=== PATIENT | female | born 1975 | race Caucasian/White ===

== ENCOUNTER 2017-04-01 16:36 | Emergency (ER) | payer BC, OTHER ==
[2017-04-01 17:09] VITALS: BP 143/91
[2017-04-01] MEDS ORDERED: Diphtheria,Pertussis(Acell),Tetanus Vaccine 0.5 ML Syringe IM ONE (17:09)
[2017-04-01] MEDS ORDERED: Silver Sulfadiazine 1% Crm 50 GM Tube TOP ONE (17:09)
[2017-04-01] MEDS ORDERED: Ketorolac 60 MG/2 ML SDV IM ONE (17:09)
--- NOTE | 2017-04-01 17:18 | EDM.PDOC ---
ED HPI GENERAL MEDICAL PROBLEM - General Chief Complaint: Burn Stated Complaint: BURN LT ARM Time Seen by Provider: 04/01/17 16:49 - History of Present Illness INITIAL COMMENTS - FREE TEXT/NARRATIVE: HISTORY AND PHYSICAL: History of present illness: The patient is a 42-year-old female who is unsure of her last tetanus shot presents from work after a hot steel that she was working with splattered onto her left forearm. Patient is right-hand dominant and states she was in her usual state of good health before this happened. He still was hot and liquefied and splattered and landed on the volar surface of her distal forearm on the left. There were no other exposures that she is aware of. Patient complains of pain at the area but has no neurosensory changes in the hands. Review of systems: As per history of present illness and below otherwise all systems reviewed and negative. Past medical history: As per history of present illness and as reviewed below otherwise noncontributory. Surgical history: As per history of present illness and as reviewed below otherwise noncontributory. Social history: No reported history of drug or alcohol abuse. Family history: As per history of present illness and as reviewed below otherwise noncontributory. Physical exam: General: Well-developed well-nourished female who is nontoxic and speaking easily in the ED HEENT: Atraumatic, normocephalic, negative for conjunctival pallor or scleral icterus, mucous membranes moist, throat clear, neck supple, nontender, trachea midline. Lungs: Clear to auscultation, breath sounds equal bilaterally, chest nontender. Heart: S1S2, regular rate and rhythm no overt murmurs Skin: At the volar surface of the distal left forearm there is multiple scattered areas of pink erythema which is ill-defined and some very small blisters seen consistent with the burn the patient describes. This is not circumferential it is very localized not extending to even retirement up the surface. There is no distal hand injuries or lesions seen and no proximal injuries or rashes/lesions seen. Patient has full range of motion of the hand in flexion at the wrist. Extremities: Atraumatic, negative for cords or calf pain. Neurovascular unremarkable. Neuro: Awake, alert, oriented. Cranial nerves II through XII unremarkable. Cerebellum unremarkable. Motor and sensory unremarkable throughout. Exam nonfocal. Diagnostics: [] Therapeutics: Tdap, cool saline gauzes, Silvadene and wound care, Toradol Impression: Superficial partial thickness burn to left forearm Definitive disposition and diagnosis as appropriate pending reevaluation and review of above. left forearm Pain Score (Numeric/FACES): 8 - Related Data Allergies Allergy/AdvReac Type Severity Reaction Status Date / Time ondansetron Allergy Cannot Verified 04/01/17 16:50 [From Zofran (as Remember hydrochloride)] adhesives Allergy Hives Uncoded 04/01/17 16:49 Home Meds: Home Meds Pantoprazole Sodium [Protonix] 40 mg PO DAILY 04/16/15 [History] buPROPion [Wellbutrin XL] 300 mg PO DAILY 04/16/15 [History] Fluconazole [Diflucan] 0 mg PO DAILY 04/01/17 [History] Iron 0 tab PO DAILY 04/01/17 [History] Past Medical History - Past Health History Medical/Surgical History: Denies Medical/Surgical History HEENT History: Reports: Impaired Vision Other HEENT History: wears glasses Other Gastrointestinal History: Bariatric surgery HIGH RISK OB History: Reports: Musculoskeletal History: Reports: Other (See Below) Other Musculoskeletal History: left foot pain Psychiatric History: Reports: PTSD - Past Surgical History Other GI Surgeries/Procedures: Bariatric surgery 2013. . Other Female Surgeries/Procedures: clips on fallopian tubes and hematoma removed from vaginal wwall 2014 Social & Family History - Family History Family Medical History: Noncontributory - Tobacco Use Smoking Status *Q: Current Every Day Smoker Years of Tobacco use: 30 Packs/Tins Daily: 1 - Caffeine Use Caffeine Use: Reports: None - Alcohol Use Days Per Week of Alcohol Use: 0 - Recreational Drug Use Recreational Drug Use: No ED ROS GENERAL - Review of Systems Review Of Systems: ROS reveals no pertinent complaints other than HPI. ED EXAM, GENERAL - Physical Exam Exam: See Below (See dictation) Course - Vital Signs Last Recorded V/S: Last Vital Signs Temp 36.7 C 04/01/17 16:55 Pulse 78 04/01/17 16:55 Resp 18 04/01/17 16:55 BP 143/91 H 04/01/17 16:55 Pulse Ox - Orders/Labs/Meds Orders: Active Orders 24 hr Category Date Time Status Communication Order [RC] STAT Care 04/01/17 17:09 Ordered Vaccines to be Administered [RC] PER UNIT ROUTINE Care 04/01/17 17:10 Ordered Diphth,Pertuss(Acell),Tet Vac [Adacel] Med 04/01/17 17:09 Once 0.5 ml IM .ONCE ONE Ketorolac [Toradol] Med 04/01/17 17:09 Once 60 mg IM ONETIME ONE Silver Sulfadiazine [Silvadene 1% Cream 50 GM] Med 04/01/17 17:09 Once 5 gm TOP ONETIME ONE Departure - Departure Time of Disposition: 17:14 Disposition: Home, Self-Care 01 Condition: good Clinical Impression: Burn of left forearm Qualifiers: Encounter type: initial encounter Burn degree: unspecified degree Qualified Code(s): T22.012A - Burn of unspecified degree of left forearm, initial encounter - Discharge Information Forms: ED Department Discharge Additional Instructions: The following information is given to patients seen in the emergency department who are being discharged to home. This information is to outline your options for follow-up care. We provide all patients seen in our emergency department with a follow-up referral. The need for follow-up, as well as the timing and circumstances, are variable depending upon the specifics of your emergency department visit. If you don't have a primary care physician on staff, we will provide you with a referral. We always advise you to contact your personal physician following an emergency department visit to inform them of the circumstance of the visit and for follow-up with them and/or the need for any referrals to a consulting specialist. The emergency department will also refer you to a specialist when appropriate. This referral assures that you have the opportunity for followup care with a specialist. All of these measure are taken in an effort to provide you with optimal care, which includes your followup. Under all circumstances we always encourage you to contact your private physician who remains a resource for coordinating your care. When calling for followup care, please make the office aware that this follow-up is from your recent emergency room visit. If for any reason you are refused follow-up, please contact the [facility] emergency department at and ask to speak to the emergency department charge nurse. [facility] Primary care- Internal Medicine and Family [address] [address] [facility] Specialty clinic-Plastic Surgery and Hand Surgery Professional Building [address] [place] [id number] Please cleanse the area with mild soap and water as we discussed that dry and apply Silvadene 3 times a day. Please elevate the area and remove your rings on your hand to prevent any future complications from swelling. Please use pain meds as needed but only take at home and otherwise use [id number] Tylenol and ibuprofen. Please call and followup with primary care or with our plastics fitter and return to ER as needed as discussed - My Orders Last 24 Hours: My Active Orders 04/01/17 17:09 Communication Order [RC] STAT Diphth,Pertuss(Acell),Tet Vac [Adacel] 0.5 ml IM .ONCE ONE Ketorolac [Toradol] 60 mg IM ONETIME ONE Silver Sulfadiazine [Silvadene 1% Cream 50 GM] 5 gm TOP ONETIME ONE 04/01/17 17:10 Vaccines to be Administered [RC] PER UNIT ROUTINE - Assessment/Plan Last 24 Hours: My Active Orders 04/01/17 17:09 Communication Order [RC] STAT Diphth,Pertuss(Acell),Tet Vac [Adacel] 0.5 ml IM .ONCE ONE Ketorolac [Toradol] 60 mg IM ONETIME ONE Silver Sulfadiazine [Silvadene 1% Cream 50 GM] 5 gm TOP ONETIME ONE 04/01/17 17:10 Vaccines to be Administered [RC] PER UNIT ROUTINE
== END 2017-04-01 17:45 | disposition home or self-care (01) ==
LOC: MW.ED 16:36
DX: T22.112A Burn of first degree of left forearm, initial encounter (principal); F17.210 Nicotine dependence, cigarettes, uncomplicated; Z98.84 Bariatric surgery status; Z79.899 Other long term (current) drug therapy; Z88.8 Allergy status to other drugs, medicaments and biological substances; X18.XXXA Contact with other hot metals, initial encounter; Y92.69 Other specified industrial and construction area as the place of occurrence of the external cause; Y99.0 Civilian activity done for income or pay; Z23 Encounter for immunization
CPT/HCPCS: 16020; 90471; 90715; 96372; 99283; A9270; J1885

== ENCOUNTER 2019-11-27 14:41 | Emergency (ER) | payer BC ==
--- NOTE | 2019-11-27 16:18 | EDM.PDOC ---
ED HPI GENERAL MEDICAL PROBLEM - General Chief Complaint: Upper Extremity Injury/Pain Stated Complaint: SWOLLEN LEFT HAND Time Seen by Provider: 11/27/19 16:17 Source of Information: Reports: Patient History Limitations: Reports: No Limitations - History of Present Illness INITIAL COMMENTS - FREE TEXT/NARRATIVE: HISTORY AND PHYSICAL: History of present illness: Patient is a 44-year-old female presents to the ED with complaint of left hand swelling. 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 She states she had an x-ray and MRI then. She has been wearing a splint on her hand at night. She states this morning she woke up and her her hand was really swollen. She denies any new or recent injury. She states her hand is aching but is better now that the swelling has gone down. Review of systems: As per history of present illness and below otherwise all systems reviewed and negative. Past medical history: As per history of present illness and as reviewed below otherwise noncontributory. Surgical history: As per history of present illness and as reviewed below otherwise noncontributory. Social history: No reported history of drug or alcohol abuse. Family history: As per history of present illness and as reviewed below otherwise noncontributory. Physical exam: General: Patient sitting comfortably in no acute distress and nontoxic appearing HEENT: Atraumatic, normocephalic, pupils reactive, negative for conjunctival pallor or scleral icterus, mucous membranes moist, throat clear, neck supple, nontender, trachea midline. No meningeal signs. Lungs: Clear to auscultation, breath sounds equal bilaterally, chest nontender. Heart: S1S2, regular, negative for clicks, rubs, or overt murmur. Abdomen: Soft, nondistended, nontender. Negative for masses or hepatosplenomegaly. Negative for costovertebral tenderness. No rigidity, rebound , guarding. Pelvis: Stable nontender. Genitourinary: Deferred. Rectal: Deferred. Extremities: Left hand is mildy swollen without erythema or warmth. Full ROM without pain. CMS intact. Atraumatic, negative for cords or calf pain. Neurovascular unremarkable. Neuro: Awake, alert, oriented. Cranial nerves II through XII unremarkable. Cerebellum unremarkable. Motor and sensory unremarkable throughout. Exam nonfocal. Notes: Diagnostics: declined x-ray Therapeutics: none Prescriptions: none Impression: Left hand swelling Plan: Ice, elevate, and alternate tylenol and motrin as needed Follow up with primary care provider Return to ED as needed as discussed Definitive disposition and diagnosis as appropriate pending reevaluation and review of above. - Related Data Allergies Allergy/AdvReac Type Severity Reaction Status Date / Time ondansetron Allergy Cannot Verified 04/01/17 16:50 [From Zofran (as Remember hydrochloride)] promethazine [From Phenergan] Allergy Cannot Verified 11/27/19 15:45 Remember adhesives Allergy Hives Uncoded 04/01/17 16:49 Home Meds: Home Meds Pantoprazole Sodium [Protonix] 40 mg PO DAILY 04/16/15 [History] buPROPion [Wellbutrin XL] 300 mg PO DAILY 04/16/15 [History] Aspirin [Halfprin] 1 tab PO DAILY 11/27/19 [History] Garlic 1 tab PO DAILY 11/27/19 [History] Past Medical History - Past Health History Medical/Surgical History: Denies Medical/Surgical History HEENT History: Reports: Impaired Vision Other HEENT History: wears glasses Other Gastrointestinal History: Bariatric surgery 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 . Other Female Surgeries/Procedures: clips on fallopian tubes and hematoma removed from vaginal wwall 2014 Social & Family History - Family History Family Medical History: Noncontributory - Tobacco Use Smoking Status *Q: Never Smoker - Caffeine Use Caffeine Use: Reports: None Review of Systems - Review of Systems Review Of Systems: Comprehensive ROS is negative, except as noted in HPI. ED EXAM, GENERAL - Physical Exam Exam: See Below (see dictation) Course - Vital Signs Last Recorded V/S: Last Vital Signs Temp Pulse 76 11/27/19 15:54 Resp 16 11/27/19 15:54 BP 162/110 H 11/27/19 15:54 Pulse Ox 99 11/27/19 15:54 Departure - Departure Time of Disposition: 16:17 Disposition: Home, Self-Care 01 Condition: Good Clinical Impression: Swelling of left hand - Discharge Information Referrals: Harrison Benjamin MD [Primary Care Provider] - Forms: ED Department Discharge Additional Instructions: The following information is given to patients seen in the emergency department who are being discharged to home. This information is to outline your options for follow-up care. We provide all patients seen in our emergency department with a follow-up referral. The need for follow-up, as well as the timing and circumstances, are variable depending upon the specifics of your emergency department visit. If you don't have a primary care physician on staff, we will provide you with a referral. We always advise you to contact your personal physician following an emergency department visit to inform them of the circumstance of the visit and for follow-up with them and/or the need for any referrals to a consulting specialist. The emergency department will also refer you to a specialist when appropriate. This referral assures that you have the opportunity for follow-up care with a specialist. All of these measure are taken in an effort to provide you with optimal care, which includes your follow-up. Under all circumstances we always encourage you to contact your private physician who remains a resource for coordinating your care. When calling for follow-up care, please make the office aware that this follow-up is from your recent emergency room visit. If for any reason you are refused follow-up, please contact the [facility] Emergency Department at and asked to speak to the emergency department charge nurse. [facility] Primary Care [address] [place], [place] [id number] [place] [address] Ice, elevate, and alternate tylenol and motrin as needed Follow up with primary care provider Return to ED as needed as discussed Sepsis Event Note - Evaluation Sepsis Screening Result: No Definite Risk - Focused Exam Vital Signs: Vital Signs Pulse Resp BP Pulse Ox 11/27/19 15:54 76 16 162/110 H 99 11/27/19 15:46 71 16 170/92 H 98 Date Exam was Performed: 11/27/19 Time Exam was Performed: 16:18
[2019-11-27 16:29] VITALS: BP 162/101; PULSE 66
== END 2019-11-27 16:20 | disposition home or self-care (01) ==
LOC: MW.ED 14:41
DX: M79.89 Other specified soft tissue disorders (principal); F43.10 Post-traumatic stress disorder, unspecified; Z88.8 Allergy status to other drugs, medicaments and biological substances; Z91.048 Other nonmedicinal substance allergy status; Z79.899 Other long term (current) drug therapy
CPT/HCPCS: 99282; 99283

== ENCOUNTER 2021-03-02 13:34 | Emergency (ER) | payer BC ==
[2021-03-02] MEDS ORDERED: Meclizine 25 MG Tab PO ONE (14:00)
--- NOTE | 2021-03-02 14:05 | EDM.PDOC ---
ED HPI GENERAL MEDICAL PROBLEM - General Chief Complaint: Cardiovascular Problem Stated Complaint: HYPER TENSION Time Seen by Provider: 03/02/21 13:43 - History of Present Illness INITIAL COMMENTS - FREE TEXT/NARRATIVE: 46-year-old female history of rheumatoid arthritis who is presenting with vertigo. Patient woke up yesterday morning with profound sensation of room spinning worsens when laying flat worsens with motion specifically turning her head. It did calm throughout the day but worsened again in the evening after laying down. She eventually was able to lay down again and go to bed woke up this morning with even worse room spinning. She does have a sensation of near syncope when the symptoms are very bad. She had nonbloody nonbilious emesis with it yesterday she has significant nausea but no vomiting today. No chest pain or shortness of breath. Patient took her blood pressure 3 times in rapid succession and noted hypotension and so called her sister who is an CHALK MOLDING MACHINE OPERATOR who recommended she come to the ER. No recent neck pain or manipulation no current neck pain no severe headache Headache Pain Score (Numeric/FACES): 1 - Related Data Allergies Allergy/AdvReac Type Severity Reaction Status Date / Time ondansetron Allergy Cannot Verified 03/02/21 13:46 [From Zofran (as Remember hydrochloride)] promethazine [From Phenergan] Allergy Cannot Verified 03/02/21 13:46 Remember adhesives Allergy Hives Uncoded 03/02/21 13:46 Home Meds: Home Meds buPROPion [Wellbutrin XL] 300 mg PO DAILY 04/16/15 [History] Esomeprazole [NexIUM] 40 mg PO DAILY 03/02/21 [History] Folic Acid 1 mg PO DAILY 03/02/21 [History] Meclizine [Antivert] 25 mg PO Q6H PRN #15 tab 03/02/21 [Rx] Methotrexate 1 dose PO ASDIRECTED 03/02/21 [History] Ramelteon [Rozerem] 8 mg PO DAILY 03/02/21 [History] predniSONE [Prednisone] 2.5 mg PO DAILY 03/02/21 [History] Past Medical History - Past Health History Medical/Surgical History: Denies Medical/Surgical History HEENT History: Reports: Impaired Vision Other HEENT History: wears glasses Other Gastrointestinal History: Bariatric surgery 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 . Other Female Surgeries/Procedures: clips on fallopian tubes and hematoma removed from vaginal wwall 2014 Social & Family History - Family History Family Medical History: No Pertinent Family History - Caffeine Use Caffeine Use: Reports: None ED ROS GENERAL - Review of Systems Review Of Systems: See Below Free Text/Narrative/Comment: General: No fever. Skin: No rash. Eyes: No vision problems. ENT: No sore throat. Neck: No neck stiffness. Respiratory: No shortness of breath. Cardiac: Per HPI Gastrointestinal: No nausea, vomiting or abdominal pain. Urinary: No dysuria. Musculoskeletal: No myalgias/arthralgias. Neurologic: Per HPI ED EXAM, GENERAL - Physical Exam Exam: See Below Free Text/Narrative:: General Appearance: No acute distress, appears comfortable Skin: No rash HEENT: Normocephalic/atraumatic, sclera anicteric, mucous membranes moist Neck: Normal range of motion Chest and Lungs: Bilateral breath sounds, clear to auscultation Cardiovascular: Regular rate and rhythm, no murmur Abdomen: Soft, non-tender Back: Normal Musculoskeletal: No edema or tenderness Neurologic: Cranial nerves III through XI intact bilaterally, visual bray intact to confrontation bilaterally, normal eryhyp-xr-xtls bilaterally, normal [id number] bilaterally strength intact in the upper and lower extremities. Patient has nystagmus with leftward gaze she has an abnormal head impulse test with a normal test of skew Psychiatric: Appropriate, cooperative #1 Interpretation EKG Date: 03/02/21 Time: 14:15 EKG Interpretation Comments: Sinus rhythm rate of 68 normal axis and intervals no acute ischemia Course - Vital Signs Last Recorded V/S: Last Vital Signs Temp 96.8 F L 03/02/21 13:48 Pulse 73 03/02/21 13:48 Resp 18 03/02/21 13:48 BP 148/83 H 03/02/21 13:48 Pulse Ox 100 03/02/21 13:48 - Orders/Labs/Meds Orders: Active Orders 24 hr Category Date Time Status EKG Documentation Completion [RC] STAT Care 03/02/21 14:00 Active Labs: Laboratory Tests 03/02/21 03/02/21 Range/Units 14:25 14:25 WBC 10.66 (4.0-11.0) K/uL RBC 4.72 (4.30-5.90) M/uL Hgb 15.4 (12.0-16.0) g/dL Hct 47.3 H (36.0-46.0) % MCV 100.2 H (80.0-98.0) fL MCH 32.6 H (27.0-32.0) pg MCHC 32.6 (31.0-37.0) g/dL RDW Std Deviation 64.3 H (28.0-62.0) fl RDW Coeff of Susan 18 H (11.0-15.0) % Plt Count 334 (150-400) K/uL MPV 10.90 (7.40-12.00) fL Neut % (Auto) 64.9 (48.0-80.0) % Lymph % (Auto) 18.1 (16.0-40.0) % Nye % (Auto) 14.3 (0.0-15.0) % Eos % (Auto) 2.6 (0.0-7.0) % Baso % (Auto) 0.1 (0.0-1.5) % Neut # (Auto) 6.9 H (1.4-5.7) K/uL Lymph # (Auto) 1.9 (0.6-2.4) K/uL Nye # (Auto) 1.5 H (0.0-0.8) K/uL Eos # (Auto) 0.3 (0.0-0.7) K/uL Baso # (Auto) 0.0 (0.0-0.1) K/uL Nucleated RBC % 0.0 /100WBC Nucleated RBCs # 0 K/uL Sodium 142 (136-145) mmol/L Potassium 4.1 (3.5-5.1) mmol/L Chloride 105 (98-107) mmol/L Carbon Dioxide 26.9 (21.0-32.0) mmol/L BUN 9 (7.0-18.0) mg/dL Creatinine 0.8 (0.6-1.0) mg/dL Est Cr Clr Drug Dosing 74.26 mL/min Estimated GFR (MDRD) > 60.0 ml/min Glucose 94 (74-106) mg/dL Calcium 9.2 (8.5-10.1) mg/dL Troponin I < 0.050 (0.000-0.056) ng/mL Meds: Medications Discontinued Medications Generic Name Dose Route Start Last Admin Trade Name Freq PRN Reason Stop Dose Admin Meclizine HCl 25 mg 03/02/21 14:00 03/02/21 14:24 Meclizine 25 Mg Tab PO 03/02/21 14:01 25 mg ONETIME ONE Administration Departure - Departure Time of Disposition: 15:19 Disposition: Home, Self-Care 01 Condition: Good Clinical Impression: Peripheral vertigo, Hypertension Prescriptions: Meclizine [Antivert] 25 mg PO Q6H PRN #15 tab PRN Reason: Dizziness Instructions: Vertigo, [id number], Hypertension, Adult, Spad-ly-Pwkg Referrals: Harrison Benjamin MD [Ordering Only Provider] - 3 Days Forms: ED Department Discharge Additional Instructions: Please call your primary care doctor on Thursday to arrange a follow-up appoi ntment. You can take the meclizine as you need you to help with the dizziness. If you have any worsening of your symptoms or any new symptoms that concern you please call your doctor or return to the ER. The following information is given to patients seen in the emergency department who are being discharged to home. This information is to outline your options for follow-up care. We provide all patients seen in our emergency department with a follow-up referral. The need for follow-up, as well as the timing and circumstances, are variable depending upon the specifics of your emergency department visit. If you don't have a primary care physician on staff, we will provide you with a referral. We always advise you to contact your personal physician following an emergency department visit to inform them of the circumstance of the visit and for follow-up with them and/or the need for any referrals to a consulting specialist. The emergency department will also refer you to a specialist when appropriate. This referral assures that you have the opportunity for follow-up care with a specialist. All of these measure are taken in an effort to provide you with optimal care, which includes your follow-up. Under all circumstances we always encourage you to contact your private physician who remains a resource for coordinating your care. When calling for follow-up care, please make the office aware that this follow-up is from your recent emergency room visit. If for any reason you are refused follow-up, please contact the [facility] Emergency Department at and asked to speak to the emergency department charge nurse. Sepsis Event Note (ED) - Evaluation Sepsis Screening Result: No Definite Risk - Focused Exam Vital Signs: Vital Signs Temp Pulse Resp BP Pulse Ox 03/02/21 13:48 96.8 F L 73 18 148/83 H 100 - My Orders Last 24 Hours: My Active Orders 03/02/21 14:00 EKG Documentation Completion [RC] STAT - Assessment/Plan Last 24 Hours: My Active Orders 03/02/21 14:00 EKG Documentation Completion [RC] STAT Assessment:: 46-year-old female presenting with signs and symptoms consistent with peripheral vertigo given the HINTS exam results central vertigo can be excluded. TMs are clear bilaterally no sign of otitis media. Will provide meclizine for symptoms. Patient does complain of an episode near syncope and so EKG CBC BMP and troponin ordered no chest pain however concern for ACS but cardiac arrhythmia is a consideration. No shortness of breath nothing suggest PE aortic dissection pneumothorax. If evaluation reassuring and symptoms improve will be stable for discharge. Given normal neurologic exam and hints exam results no indication for CT scan at this time. Patient has no neck pain no recent neck manipulation no findings that would suggest vertebral artery dissection. 1520: Labs are normal. EKG is without ischemia. Patient symptoms improved with meclizine. She does remain mildly hypertensive at 169/89. We discussed the importance of following up with her primary care doctor. Patient does have a prior history of hypertension and was on medications in the past. Patient to follow-up with her primary care doctor return precaution discussed and understood.
[2021-03-02 14:55] LABS: BLOOD UREA NITROGEN,BUN 9 mg/dL (7.0-18.0); CARBON DIOXIDE,CO2 26.9 mmol/L (21.0-32.0); CHLORIDE,CL 105 mmol/L (98-107); GLUCOSE RANDOM 94 mg/dL (74-106); POTASSIUM,K 4.1 mmol/L (3.5-5.1); SODIUM,NA 142 mmol/L (136-145)
[2021-03-02 15:27] VITALS: BP 161/83; PULSE 67
== END 2021-03-02 15:28 | disposition home or self-care (01) ==
LOC: MW.ED 13:34
DX: H81.399 Other peripheral vertigo, unspecified ear (principal); I10 Essential (primary) hypertension; Z79.899 Other long term (current) drug therapy; Z91.048 Other nonmedicinal substance allergy status; Z88.8 Allergy status to other drugs, medicaments and biological substances; Z88.1 Allergy status to other antibiotic agents
CPT/HCPCS: 36415; 80048; 84484; 85025; 93005; 99284; A9270

== ENCOUNTER 2021-06-21 22:31 | Emergency (ER) | payer BC ==
[2021-06-21] MEDS ORDERED: Ketorolac 15 MG/ML SDV IM ONE (22:54)
[2021-06-21 22:55] VITALS: BP 154/84; PULSE 78
--- NOTE | 2021-06-21 23:50 | CR ---
INDICATION: Fall. TECHNIQUE: Right hand radiographs, 3 views. Right wrist radiographs, 3 views. COMPARISON: None. FINDINGS: Right wrist: No dislocation or displaced fracture. Patchy sclerosis and lucency throughout the lunate, as well as multiple lucencies traversing the lunate on the lateral projection. Mild triscaphe joint space narrowing and osteophytosis. Soft tissue swelling about the wrist. Right hand: No dislocation or acute fracture. Joint spaces are maintained. No radiopaque foreign body or soft tissue gas. IMPRESSION: 1. 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 Lucencies traversing the lunate may be due to chronic fragmentation and/or acute fracture. 2. No additional acute osseous abnormality. Dictated by Mark Barrios MD @ 06/21/2021 11:48:12 PM Dictated by: Mark Barrios MD @ 06/21/2021 23:48:19 (Electronically Signed)
--- NOTE | 2021-06-21 23:52 | CR ---
INDICATION: Fall. TECHNIQUE: Left foot radiographs, 3 nonweightbearing views. COMPARISON: None. FINDINGS: No dislocation or acute fracture. Bipartite hallux fibular sesamoid. Joint spaces are maintained. Moderate bidirectional calcaneal enthesophyte. No radiopaque foreign body or soft tissue gas. IMPRESSION: Left foot without acute osseous abnormality. Dictated by aMrk Barrios MD @ 06/21/2021 11:49:59 PM Dictated by: Mark Barrios MD @ 06/21/2021 23:50:05 (Electronically Signed)
--- NOTE | 2021-06-22 00:26 | EDM.PDOC ---
ED HPI GENERAL MEDICAL PROBLEM - General Chief Complaint: Lower Extremity Injury/Pain Stated Complaint: FELL DOWN THE STAIRS Time Seen by Provider: 06/21/21 22:42 - History of Present Illness INITIAL COMMENTS - FREE TEXT/NARRATIVE: CHIEF COMPLAINT(S): Fall HISTORY OF PRESENT ILLNESS: This is a 38-year-old woman with a past medical history of reported rheumatoid arthritis who comes to the emergency department with a chief complaint of fall. The patient states that today she fell down and she does have recurrent falls. She states that she has a history of rheumatoid arthritis and has decreased range of motion in her right hand. She states that she is currently experiencing some left foot pain and right hand pain. She denies any head injury or loss of consciousness. She states the pain in her left foot is on the top of her left foot. She denies any numbness, tingling, weakness. She states that she has not yet tried any pain medication. She rates her pain as 3 out of 10 and achy. She states that the pain is worse when you touch it. This is similar for both areas of pain. She states that her hand has no decreased range of motion as compared to baseline but she is experiencing pain on the thumb side of her hand. She denies any numbness, tingling, weakness. She denies any other symptoms or injuries. REVIEW OF SYSTEMS: Constitutional: Denies fever, chills. Eyes: Denies eye pain Ears, Nose, Mouth, & Throat: Denies earache Cardiovascular: Denies chest pain Respiratory: Denies shortness of breath Gastrointestinal: Denies Nausea, vomiting, diarrhea, hematochezia. Genitourinary: Denies hematuria Skin:Denies a rash MSK: Positive for left foot and right hand pain Neurological: Denies blurred vision Psychiatric: Denies depression PAST MEDICAL HISTORY: As per history of present illness and as reviewed below otherwise noncontributory. SURGICAL HISTORY: As per history of present illness and as reviewed below otherwise noncontributory. SOCIAL HISTORY: As per history of present illness and as reviewed below otherwise noncontributory. FAMILY HISTORY: As per history of present illness and as reviewed below otherwise noncontributory. EXAMINATION OF ORGAN SYSTEMS/BODY AREAS: Constitutional: Blood pressure 154/84, heart rate 78, respiratory rate 22 with an oxygen saturation of 100% on room air. Temperature 36.6 General: Middle-aged woman who does not appear to be in acute distress Psychiatric: Appropriate mood and affect. Eyes: No scleral icterus or conjunctival erythema ENMT: Moist mucous membranes. No pharyngeal erythema Cardiovascular: Regular, rate, and rhythm. No gallops, murmurs, or rubs. Bilateral upper extremity and lower extremity pulses symmetric and intact. No peripheral edema. No JVD. Respiratory: Lungs clear to auscultation bilaterally. No wheezes, rales, or rhonchi. Gastrointestinal: Soft, non-tender, non-distended. Normoactive bowel sounds Genitourinary: No suprapubic tenderness Musculoskeletal: The patient can fully flex and extend at the left ankle. There is tenderness to palpation along the dorsal aspect of the left foot. Full range of motion of the toes. No obvious deformity of the left foot or swelling. On the lower right hand there is decreased range of motion however the patient reports that this is baseline. She has tenderness palpation along the right thumb. She has anatomical snuffbox tenderness. There is mild swelling along h er right hand. Skin: No lesions or abrasions. Neurological: Alert, GCS 15 distal sensation is intact MEDICAL DECISION MAKING AND COURSE IN THE ED WITH INTERPRETATION/REVIEW OF DIAGNOSTIC STUDIES: This is a 46-year-old man with a past medical history of reported rheumatoid arthritis and decreased range of motion of her right hand who comes to the emergency department with recurrent falls with a fall with left foot tenderness to palpation and anatomical snuffbox tenderness. At this time we will provide the patient with Toradol for pain relief. The patient notes no blood thinners therefore no other imaging is indicated. The patient has stable vital signs. Will obtain left foot x-ray, right hand x-ray and right wrist x- ray. We will reevaluate after this. The radiological images were viewed by myself along with reading the report from the radiologist. Right wrist x-ray reveals right lunate patchy sclerosis and lucency which is suspicious for osteonecrosis. This may be due to chronic fragmentation or acute fracture otherwise no acute abnormality. Right hand x-ray reveals similar lunate lucency otherwise no acute fracture. Left foot x-ray does not reveal any fracture or dislocation. 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 I did discuss the results with the patient. I discussed with her at this time that given the anatomical snuffbox tenderness and her inability to bear weight will place them in a thumb spica splint on the right hand and a posterior mold splint and she needs to follow-up with orthopedics. I did discuss her prior MRI results and the x-ray today. She is to discuss this with her orthopedic surgeon and her business solution analyst. I did encourage her to use Tylenol, Motrin, ice and elevation to help with the pain. She was given strict return precautions. She was amenable discharge and had no further questions DISPOSITION: The patient was discharged home in stable condition. The patient will follow up with orthopedics in 5 to 7 days CONDITION: Fair PROCEDURES: None FINAL IMPRESSION(S)/DIAGNOSES: 1. Acute left foot pain, suspect ligamentous injury 2. Acute right hand pain with anatomical snuffbox tenderness, possible scaphoid fracture DME: Right thumb spica splint Indication: Snuffbox tenderness, possible scaphoid fracture Benefit: Immobilization Duration: Until follow-up with orthopedics DME: Crutches Indication: Nonweightbearing left lower extremity secondary to possible ligamentous injury Benefit: Nonweightbearing Duration: Until follow-up with orthopedics Ld Wells M.D. right wrist Pain Score (Numeric/FACES): 3 - Related Data Allergies Allergy/AdvReac Type Severity Reaction Status Date / Time ondansetron Allergy Cannot Verified 06/21/21 22:37 [From Zofran (as Remember hydrochloride)] promethazine [From Phenergan] Allergy Cannot Verified 06/21/21 22:37 Remember adhesives Allergy Hives Uncoded 03/02/21 13:46 Home Meds: Home Meds buPROPion [Wellbutrin XL] 300 mg PO DAILY 04/16/15 [History] Esomeprazole [NexIUM] 40 mg PO DAILY 03/02/21 [History] Folic Acid 1 mg PO DAILY 03/02/21 [History] Methotrexate 1 dose PO ASDIRECTED 03/02/21 [History] Ramelteon [Rozerem] 8 mg PO DAILY 03/02/21 [History] predniSONE [Prednisone] 2.5 mg PO DAILY 03/02/21 [History] Biotin 1 tab PO DAILY 06/21/21 [History] Eszopiclone [Lunesta] 3 mg PO BEDTIME 06/21/21 [History] Iron 1 tab PO DAILY 06/21/21 [History] Past Medical History - Past Health History Medical/Surgical History: Denies Medical/Surgical History HEENT History: Reports: Impaired Vision Other HEENT History: wears glasses Cardiovascular History: Reports: Hypertension Respiratory History: Reports: None Gastrointestinal History: Reports: Other (See Below) Other Gastrointestinal History: Bariatric surgery Genitourinary History: Reports: None SUBSTANCE ABUSE THERAPIST History: Reports: Musculoskeletal History: Reports: Other (See Below) Other Musculoskeletal History: RA Neurological History: Reports: Vertigo Psychiatric History: Reports: PTSD Endocrine/Metabolic History: Reports: None Hematologic History: Reports: None Immunologic History: Reports: None Oncologic (Cancer) History: Reports: None Dermatologic History: Reports: None - Infectious Disease History Infectious Disease History: Reports: Chicken Pox - Past Surgical History Head Surgeries/Procedures: Reports: None HEENT Surgical History: Reports: None Cardiovascular Surgical History: Reports: None Respiratory Surgical History: Reports: None GI Surgical History: Reports: Bariatric Procedure Other GI Surgeries/Procedures: Bariatric surgery 2013. . Female Surgical History: Reports: Other (See Below) Other Female Surgeries/Procedures: clips on fallopian tubes and hematoma removed from vaginal wwall 2014 Endocrine Surgical History: Reports: None Neurological Surgical History: Reports: C-Spine Musculoskeletal Surgical History: Reports: None Oncologic Surgical History: Reports: None Social & Family History - Family History Family Medical History: No Pertinent Family History - Tobacco Use Tobacco Use Status *Q: Current Every Day Tobacco User Years of Tobacco use: 30 Packs/Tins Daily: 0.7 - Caffeine Use Caffeine Use: Reports: None - Recreational Drug Use Recreational Drug Use: No Review of Systems - Review of Systems Review Of Systems: See Below ED EXAM, GENERAL - Physical Exam Exam: See Below Course - Vital Signs Last Recorded V/S: Last Vital Signs Temp 36.6 C 06/21/21 22:37 Pulse 78 06/21/21 22:37 Resp 22 H 06/21/21 22:37 BP 154/84 H 06/21/21 22:37 Pulse Ox 100 06/21/21 22:37 - Orders/Labs/Meds Meds: Medications Discontinued Medications Generic Name Dose Route Start Last Admin Trade Name Freq PRN Reason Stop Dose Admin Ketorolac Tromethamine 15 mg 06/21/21 22:54 06/21/21 23:14 Ketorolac 15 Mg/Ml Sdv IM 06/21/21 22:55 15 mg ONETIME ONE Administration Departure - Departure Time of Disposition: 00:25 Disposition: Home, Self-Care 01 Condition: Fair Clinical Impression: Hand pain, Foot sprain - Discharge Information *PRESCRIPTION DRUG MONITORING PROGRAM REVIEWED*: No *COPY OF PRESCRIPTION DRUG MONITORING REPORT IN PATIENT BRITTANY: No Instructions: Crutch Use, Adult, [id number], Foot Sprain, Kienböck's Disease, Scaphoid Fracture Referrals: Harrison Benjamin MD [Primary Care Provider] - Forms: ED Department Discharge Additional Instructions: Your evaluated today on an emergent basis. At this time there was no evidence of any fracture however given the tenderness on your hand we did place you in a thumb spica cast. I recommend that you follow-up with orthopedics within 5 to 7 days for this as scaphoid fractures can be missed. In addition given that you are unable to bear weight onto your left foot we did place you in a posterior splint. This could be a ligamentous injury. Please follow-up with orthopedics for this as well. Please return if you have any new or worsening symptoms. Please use: Tylenol 500-1000mg every 6 hours (DO NOT TAKE MORE THAN 4000mg in 1 day) Ibuprofen 400mg every 6 hours (Take with food as it can cause ulcers, GI upset) Example schedule: 8:00 AM (Tylenol 500-1000mg) 11:00 AM (Ibuprofen 400mg) 2:00 PM (Tylenol 500-1000mg) 5:00 PM (Ibuprofen 400mg) Ice the area 20 minutes [address] [facility] [address], [address] [place] [address] The patient is informed of any results of their evaluation and diagnostic workup and all questions are answered. They are given discharge instructions and return precautions. The patient is stable for discharge. The patient states they understand and agree with the plan and that they will return if their symptoms get worse or if they have any new concerns. The following information is given to patients seen in the emergency department who are being discharged to home. This information is to outline your options for follow-up care. We provide all patients seen in our emergency department with a follow-up referral. The need for follow-up, as well as the timing and circumstances, are variable depending upon the specifics of your emergency department visit. If you don't have a primary care physician on staff, we will provide you with a referral. We always advise you to contact your personal physician following an emergency department visit to inform them of the circumstance of the visit and for follow-up with them and/or the need for any referrals to a consulting specialist. The emergency department will also refer you to a specialist when appropriate. This referral assures that you have the opportunity for follow-up care with a specialist. All of these measure are taken in an effort to provide you with optimal care, which includes your follow-up. Under all circumstances we always encourage you to contact your private physician who remains a resource for coordinating your care. When calling for follow-up care, please make the office aware that this follow-up is from your recent emergency room visit. If for any reason you are refused follow-up, please contact the [facility] Emergency Department at and asked to speak to the emergency department charge nurse. Sepsis Event Note (ED) - Evaluation Sepsis Screening Result: No Definite Risk
== END 2021-06-22 01:03 | disposition home or self-care (01) ==
LOC: MW.ED 22:31
DX: S93.601A Unspecified sprain of right foot, initial encounter (principal); M79.641 Pain in right hand; I10 Essential (primary) hypertension; M06.9 Rheumatoid arthritis, unspecified; Z91.048 Other nonmedicinal substance allergy status; Z88.8 Allergy status to other drugs, medicaments and biological substances; Z72.0 Tobacco use; Z79.899 Other long term (current) drug therapy; W10.8XXA Fall (on) (from) other stairs and steps, initial encounter
CPT/HCPCS: 29125; 29515; 73110; 73130; 73630; 96372; 99283; J1885

== ENCOUNTER 2024-10-25 07:21 | Day surgery (SDC) | payer BC ==
[~2024-10-25 07:21] MED LIST: Sodium Chloride 0.9% 10 ML Syringe FLUSH PRN; Sodium Chloride 0.9% 2.5 ML Syringe FLUSH PRN; Sodium Chloride 0.9% 20 ML SDV IV PRN
[2024-10-25] MEDS: Lactated Ringers 1,000 ML IV SCH (07:46)
[2024-10-25] MEDS ORDERED: propofoL 500 MG/50 ML 50 ML ONE (08:43)
[2024-10-25] MEDS ORDERED: Lidocaine 2% 5 ML SDV ONE (08:44)
[2024-10-25 10:35] VITALS: BP 141/80; PULSE 68
== END 2024-10-25 10:30 | disposition home or self-care (01) ==
LOC: MW.SDS 07:21
PROVIDERS: ATTEND Surgery
DX: K29.51 Unspecified chronic gastritis with bleeding (principal); K31.89 Other diseases of stomach and duodenum; K44.9 Diaphragmatic hernia without obstruction or gangrene; K21.9 Gastro-esophageal reflux disease without esophagitis; F32.A Depression, unspecified; I10 Essential (primary) hypertension; E78.00 Pure hypercholesterolemia, unspecified; K80.20 Calculus of gallbladder without cholecystitis without obstruction; E03.9 Hypothyroidism, unspecified; Z90.3 Acquired absence of stomach [part of]; Z79.890 Hormone replacement therapy; Z79.899 Other long term (current) drug therapy; Z88.8 Allergy status to other drugs, medicaments and biological substances; Z91.048 Other nonmedicinal substance allergy status
CPT/HCPCS: 43239; 45378; J2704; J7120; 00813; J3490